=== PATIENT | male | born 2000 | race African-American/Black ===

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

== ENCOUNTER 2022-11-15 16:55 | Emergency (ER) | payer MEDICAID, SELFPAY ==
[2022-11-15] MEDS ORDERED: Ibuprofen 600 MG TAB ONE (17:15)
== END 2022-11-15 17:36 | disposition home or self-care (01) ==
LOC: MADERS 16:55
DX: J02.9 Acute pharyngitis, unspecified (principal)
CPT/HCPCS: 87081; 87430; 87804; 99283